=== PATIENT | male | born 1960 ===

== ENCOUNTER 2016-11-06 11:32 | Inpatient (IN) | payer OTHER ==
[2016-11-06 11:32] VITALS: BMI 23.6
[2016-11-06] MEDS ORDERED: Sodium Chloride 0.9% 1,000 ML IV ONE (12:34)
--- NOTE | 2016-11-06 12:41 | C.PDOC ---
History Of Present Illness 56 yr old male presents to the ER sent by Dr. Tierney for evaluation of Lyme Disease. Patient denies fever, chills, chest pain, SOB, nausea, vomiting, abdominal pain, diarrhea, weakness or numbness. Time Seen by Provider: 11/06/16 12:06 Chief Complaint (Nursing): Medical Clearance History Per: Patient History/Exam Limitations: no limitations Onset/Duration Of Symptoms: Unknown Past Medical History Reviewed: Historical Data, Nursing Documentation, Vital Signs Vital Signs: Last Vital Signs Temp 97.3 F L 11/06/16 11:40 Pulse 74 11/06/16 11:40 Resp 18 11/06/16 11:40 BP 120/77 11/06/16 11:40 Pulse Ox 99 11/06/16 13:36 - Medical History PMH: Anxiety, Benign Prostatic Hyperplasia, HTN, Seizures (11/[address]GO [address]UE [address] CONTRAST ALLERGY) Surgical History: Endoscopy - [facility] Procedures CLOSED ENDOSCOPIC BIOPSY OF LARGE INTESTINE (08/05/13) DX ULTRASOUND NEC (08/03/13) ESOPHAGOGASTRODUODENOSCOPY [EGD] W/CLOSED BIOPSY (11/17/14) TETANUS TOXOID ADMINIST (04/11/14) Family History: States: No Known Family Hx - Social History Hx Tobacco Use: No Hx Alcohol Use: No Hx Substance Use: No - Immunization History Hx Tetanus Toxoid Vaccination: No Hx Influenza Vaccination: No Hx Pneumococcal Vaccination: No Review Of Systems Except As Marked, All Systems Reviewed And Found Negative. Constitutional: Negative for: Fever, Chills Cardiovascular: Negative for: Chest Pain Respiratory: Negative for: Shortness of Breath Gastrointestinal: Negative for: Nausea, Vomiting, Abdominal Pain, Diarrhea Neurological: Negative for: Weakness, Numbness Physical Exam - Physical Exam Appears: Well, Non-toxic, No Acute Distress, Other (Bilateral cheeks redness) Skin: Warm, Dry, No Rash Head: Atraumatic, Normacephalic Oral Mucosa: Moist Throat: Normal, No Erythema, No Exudate, No Drooling Chest: Symmetrical, No Tenderness Cardiovascular: Rhythm Regular, No Murmur Respiratory: Normal Breath Sounds, No Rales, No Rhonchi, No Wheezing Gastrointestinal/Abdominal: Normal Exam, Soft, No Tenderness, No Guarding, No Rebound Extremity: Normal ROM, No Swelling Neurological/Psych: Oriented x3, Normal Speech ED Course And Treatment - Laboratory Results Result Diagrams: 11/06/16 13:24 11/06/16 13:24 Lab Interpretation: Abnormal ECG: Interpreted By Me ECG Rhythm: Sinus Bradycardia ECG Interpretation: Normal Rate From EC O2 Sat by Pulse Oximetry: 99 Pulse Ox Interpretation: Normal - Other Rad CXR X-Ray: Viewed By Me, Read By Radiologist Interpretation: HISTORY: SOB. COMPARISON: 11/07/2014. TECHNIQUE: Chest PA and lateral. FINDINGS: LUNGS: No active pulmonary disease. PLEURA: No significant pleural effusion identified. No pneumothorax apparent. CARDIOVASCULAR: Normal. OSSEOUS STRUCTURES: No significant abnormalities. VISUALIZED UPPER ABDOMEN: Normal. OTHER FINDINGS: None. IMPRESSION: No active disease. Progress Note: Case discussed with Dr tierney and request admission Reassessment Condition: Unchanged - Physician Consult Information Physician Contacted: Kimberly Tierney Outcome Of Conversation: admit Medical Decision Making Medical Decision Making: PLAN: * CXR * EKG * CBC * Lyme IGG, IGM * Urinalysis * Sodium Chloride IV Disposition Discussed With Dr.: Kimberly Tierney Doctor Will See Patient In The: Hospital - Disposition Disposition: HOSPITALIZED Disposition Time: 13:40 Condition: STABLE - POA Present On Arrival: None - Clinical Impression Clinical Impression: Lyme disease - PA / SENIOR MANAGER QUALITY ASSURANCE / Resident Statement MD/DO has reviewed & agrees with the documentation as recorded. - Scribe Statement The provider has reviewed the documentation as recorded by the Scribe Usha Knox All medical record entries made by the Scribe were at my direction and personally dictated by me. I have reviewed the chart and agree that the record accurately reflects my personal performance of the history, physical exam, medical decision making, and the department course for this patient. I have also personally directed, reviewed, and agree with the discharge instructions and disposition. Decision To Admit - Pt Status Changed To: Hospital Disposition Of: Inpatient - Admit Certification Admit to Inpatient:: After my assessment, the patient will require hospitalization for at least two midnights. This is because of the severity of symptoms shown, intensity of services needed, and/or the medical risk in this patient being treated as an outpatient. - InPatient: Physician Admission Certification: I certify that this patient requires 2 or more midnights of care for the following reason:: Lyme disease - . Bed Request Type: Regular Admitting Physician: Kimberly Tierney Patient Diagnosis: Lyme disease
--- NOTE | 2016-11-06 12:48 | RAD ---
HISTORY: SOB COMPARISON: 11/07/2014 TECHNIQUE: Chest PA and lateral FINDINGS: LUNGS: No active pulmonary disease. PLEURA: No significant pleural effusion identified. No pneumothorax apparent. CARDIOVASCULAR: Normal. OSSEOUS STRUCTURES: No significant abnormalities. VISUALIZED UPPER ABDOMEN: Normal. OTHER FINDINGS: None. IMPRESSION: No active disease.
[2016-11-06 13:36] LABS: RBC URINE < 1 /hpf (0-3); URINE BILIRUBIN NEGATIVE (NEGATIVE); URINE BLOOD NEGATIVE (NEGATIVE); URINE COLOR Straw (YELLOW); URINE GLUCOSE (UA) NORMAL (Normal); URINE KETONE NEGATIVE (NEGATIVE); URINE LEUKOCYTE ESTERASE NEG Leu/uL (Negative); URINE PROTEIN NEGATIVE (NEGATIVE); URINE UROBILINOGEN NORMAL mg/dL (0.2-1.0); WBC URINE < 1 /hpf (0-5)
[2016-11-06] MEDS ORDERED: Sodium Chloride 0.9% 1,000 ML ONE (13:36)
[2016-11-06 13:45] LABS: CHLORIDE 104 mmol/L (98-107); POTASSIUM 3.8 mmol/L (3.6-5.2); SODIUM 141 mmol/L (132-148)
[2016-11-06 13:47] LABS: AST/SGOT 35 U/L (17-59); BASO % 0.8 % (0.0-2.0); BILIRUBIN,TOTAL 0.2 mg/dL (0.2-1.3); CARBON DIOXIDE 24 mmol/L (22-30); EOS % 1.1 % (0.0-4.0); GFR AFRICAN-AMERICAN > 60; HEMATOCRIT 40.6 % (35.0-51.0); LYMPH # 0.8 K/uL (1.0-4.3); LYMPH % 41.1 % (20.0-40.0); MEAN CELL VOLUME 93.5 fL (80.0-94.0); MEAN CORPUSCULAR HEMOGLOBIN 30.7 pg (27.0-31.0); MEAN CORPUSCULAR HGB CONC 32.8 g/dL (33.0-37.0); MEAN PLATELET VOLUME 9.9 fL (7.2-11.7); MONO # 0.3 K/uL (0.0-0.8); MONO % 14.6 % (0.0-10.0); RED CELL DISTRIBUTION WIDTH 12.8 % (11.5-14.5)
[2016-11-06 13:48] LABS: ALB/GLOB RATIO 1.5 (1.0-2.1); ALKALINE PHOSPHATASE 54 U/L (38-126); ALT/SGPT 35 U/L (21-72); BLOOD UREA NITROGEN 17 mg/dL (9-20); CALCIUM 8.8 mg/dl (8.6-10.4); GLUCOSE,RANDOM 97 mg/dL (75-110); TOTAL PROTEIN 6.4 g/dL (6.3-8.3)
--- NOTE | 2016-11-06 14:17 | CP.PCM.HP ---
History of Present Illness - History of Present Illness History of Present Illness: COMPREHENSIVE HISTORY & PHYSICAL EXAM HPI PT. 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 FOR SOMETIME HAS BEEN CMPLAIG OF MEMOMARY LOSS AND NO FOCAL WAEKNESS . NEUROLOGY W/U SHOWED 4-5 BAND POSITIVE FOR LYME DISEASE . MRI BRAIN SHOWED WHITE MATTER CHANGES PROBABLY SEC TO LYME . PT ALSO C/O HEADACHE PAST HIST. HTN/CH. SINUSITIS PERSONAL HIST: Smoking. N Alcohol. 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 FAMILY HIST : ROS : Constitutional: Negative for weight change, chills, night sweats, fatigue and usage of assist device. Eyes: Negative for redness, swelling, itching, discharge, vision changes, blurry vision, double vision, glaucoma, cataracts, Ears: Negative for hearing loss, ringing, , tinnitus, vertigo Nose: Negative for rhinorrhea, stuffiness, sniffing, itching, postnasal drip, discoloration, nasal congestion and epistaxis. Throat: Negative for throat clearing, sore throat, hoarseness, difficulty swallowing and difficulty speaking. Respiratory: Negative for cough, chest tightness, sputum or phlegm, chronic cough, hemoptysis, wheezing, snoring at night, pleuritic chest pain and daytime somnolence. Cardiovascular: Negative for chest pain, palpitations, orthopnea, PND, Edema of legs, leg cramps, angina, claudication, , irregular heartbeat, Neurology: Negative for irritability, muscle weakness, numbness and tingling, seizures, tremors, slurred speech, syncope, POS FOR mood changes, recurrent headaches MEMORYLOSS Gastrointestinal: Negative for difficulty swallowing, diarrhea, constipation, black stools, rectal bleeding, nausea, flatulence, reflux, poor appetite, changes in bowel habits, abdominal pain Genitourinary: Negative for frequent urination, hematuria, discharge, incontinence, urinary retention, frequent UTI, Psychiatric: Negative for depression, anxiety/panic, suicidal tendencies, Musculoskeletal: Negative for swollen joints, back pain, , neck pain, morning stiffness of joints, . Skin: Negative for rash, ulcers, itching, dry skin and pigmented lesions. P/E: Constitutional: Appears stated age and in no apparent distress. Head: Normocephalic. Ears: External ear canals patent without inflammation. Tympanic membranes intact with normal light reflex and landmark. Eyes: Pupils are central, bilaterally equal, symmetrical and reacts to light with normal movements and no icterus or pallor. Nose: External nares are patent. Mucosa is pink Mouth-Throat: Good general appearance and condition. No post-pharyngeal/oropharyngeal erythema and tonsillar hypertrophy. Good dental hygiene. Neck-Lymphatic: Neck is supple with normal ROM, no thyromegaly, lymph nodes or masses. JVD is normal with no carotid bruit. Lungs: Clear to percussion and auscultation with bilateral normal air entry. Cardiovascular: S1 and S2 are normal with no murmurs, gallops and rub. GI Exam: No hepatomegaly. Abdomen is soft and non-tender. No Organomegaly , masses or hernias are evident and bowel sounds are normal and active. Neurology: Higher function and all cranial nerves intact, with no gross motor or sensory deficit. Superficial and deep reflexes are normal with downwards planters. No cerebellar deficit with normal gait. Musculoskeletal: No tender spots with normal curvature of the spine with no swelling or restricted ROM of the small and large joints. Extremities: Homans sign absent. Intact pulses with no pitting edema, calf tenderness or skin color changes. 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 SINUSITIS PLAN: IV AB PER ID LP Present on Admission - Present on Admission Any Indicators Present on Admission: No Past Patient History - Past Medical History & Family History Past Medical History?: Yes - Past Social History Smoking Status: Never Smoked - CARDIAC Hx Hypertension: Yes - PULMONARY Hx Respiratory Disorders: Yes (SEASONAL ALLERGIES) - NEUROLOGICAL Hx Seizures: Yes (11/[address] CONTRAST ALLERGY) - HEENT Hx HEENT Problems: No - ENDOCRINE/METABOLIC Hx Endocrine Disorders: No - HEMATOLOGICAL/ONCOLOGICAL Hx Blood Disorders: No - INTEGUMENTARY Hx Dermatological Problems: Yes Other/Comment: H/O SKIN CANCER - MUSCULOSKELETAL/RHEUMATOLOGICAL Hx Musculoskeletal Disorders: No - GASTROINTESTINAL Hx Gastrointestinal Disorders: No - GENITOURINARY/GYNECOLOGICAL Hx Genitourinary Disorders: No - PSYCHIATRIC Hx Anxiety: Yes Hx Substance Use: No - SURGICAL HISTORY Hx Surgeries: Yes Hx Arthroscopy: Yes (LEFT KNEE MENISCUS REPAIR) Other/Comment: SKIN CANCER REMOVED FROM LEFT CHEEK - ANESTHESIA Hx Anesthesia: Yes Hx Anesthesia Reactions: No Hx Malignant Hyperthermia: No Meds Home Medications: Home Medication List Medication Instructions Recorded Confirmed Type cefTRIAXone [Rocephin] 2 gm IV DAILY #20 vial 11/13/16 Rx cefTRIAXone [Rocephin] 2 gm IVPB Q24H vial 11/13/16 Rx Allergies/Adverse Reactions: Allergies Allergy/AdvReac Type Severity Reaction Status Date / Time FISH Allergy Severe SHORTNESS Verified 05/25/15 08:24 OF BREATH Fish Containing Products Allergy Verified 11/06/16 11:38 iodine Allergy Verified 11/06/16 11:38 shellfish derived Allergy Verified 11/06/16 11:38 Results - Vital Signs Recent Vital Signs: Last Vital Signs Temp 97.3 F L 11/06/16 11:40 Pulse 74 11/06/16 11:40 Resp 18 11/06/16 11:40 BP 120/77 11/06/16 11:40 Pulse Ox 99 11/06/16 13:36 - Labs Result Diagrams: 11/13/16 07:19 11/11/16 07:08
--- NOTE | 2016-11-06 14:35 | CARD ---
APPROVED REPORT EKG Measurement Heart [id number] <Conclusion> Sinus bradycardia Otherwise normal ECG
[2016-11-06] MEDS: Metoprolol Succinate 50 mg XL Tab PO SCH (15:44)
--- NOTE | 2016-11-06 18:07 | CP.PCM.CON ---
History of Present Illness - History of Present Illness History of Present Illness: INFECTIOUS DISEASE CONSULT; PATIENT SEEN. CHART REVIEWED. HISTORY OBTAINED FROM AT BEDSIDE. CONSULT DICTATED; DICTATION NUMBER; # [id number]. SEE REPORTS. Past Patient History - Past Medical History & Family History Past Medical History?: Yes - Past Social History Smoking Status: Never Smoked - CARDIAC Hx Hypertension: Yes - PULMONARY Hx Respiratory Disorders: Yes (SEASONAL ALLERGIES) - NEUROLOGICAL Hx Seizures: Yes (11/[address] CONTRAST ALLERGY) - HEENT Hx HEENT Problems: No - ENDOCRINE/METABOLIC Hx Endocrine Disorders: No - HEMATOLOGICAL/ONCOLOGICAL Hx Blood Disorders: No - INTEGUMENTARY Hx Dermatological Problems: Yes Other/Comment: H/O SKIN CANCER - MUSCULOSKELETAL/RHEUMATOLOGICAL Hx Musculoskeletal Disorders: No - GASTROINTESTINAL Hx Gastrointestinal Disorders: No - GENITOURINARY/GYNECOLOGICAL Hx Genitourinary Disorders: No - PSYCHIATRIC Hx Anxiety: Yes Hx Substance Use: No - SURGICAL HISTORY Hx Surgeries: Yes Hx Arthroscopy: Yes (LEFT KNEE MENISCUS REPAIR) Other/Comment: SKIN CANCER REMOVED FROM LEFT CHEEK - ANESTHESIA Hx Anesthesia: Yes Hx Anesthesia Reactions: No Hx Malignant Hyperthermia: No Meds Allergies/Adverse Reactions: Allergies Allergy/AdvReac Type Severity Reaction Status Date / Time FISH Allergy Severe SHORTNESS Verified 05/25/15 08:24 OF BREATH Fish Containing Products Allergy Verified 11/06/16 11:38 iodine Allergy Verified 11/06/16 11:38 shellfish derived Allergy Verified 11/06/16 11:38 - Medications Medications: Current Medications Alprazolam (Xanax) 0.5 mg PO HS PRN PRN Reason: Anxiety Amlodipine Besylate (Norvasc) 10 mg PO DAILY [facility] Losartan Potassium (Cozaar) 100 mg PO DAILY [facility] Last Admin: 11/06/16 15:43 Dose: Not Given Metoprolol Succinate (Toprol Xl) 50 mg PO DAILY [facility] Last Admin: 11/06/16 15:44 Dose: Not Given Rosuvastatin Calcium (Crestor) 5 mg PO [facility] Results - Vital Signs Recent Vital Signs: Last Vital Signs Temp 97.8 F 11/06/16 17:00 Pulse 68 11/06/16 17:00 Resp 17 11/06/16 17:00 BP 121/80 11/06/16 17:00 Pulse Ox 100 11/06/16 17:00 - Labs Result Diagrams: 11/06/16 13:24 11/06/16 13:24
[2016-11-06] MEDS: cefTRIAXone 2 GM in Sodium Chloride 0.9% 100 ML IVPB SCH (19:50)
[2016-11-07 01:26] VITALS: RESP 20
--- NOTE | 2016-11-07 08:41 | CON ---
DATE: 11/06/2016 REQUESTING PHYSICIAN: Dr. Snider. REASON FOR CONSULTATION: Headaches with memory loss and positive Lyme titers and serology. HISTORY OF PRESENT ILLNESS: The patient is a 56-year-old male, who is admitted via the Emergency [facility] m because of chronic headaches and also complaining of recent memory loss with no focal weakness at p resent. The patient had extensive workup done as outpatient by neurologist, and workup showed more t rodgers 5-band positive for Lyme disease including both IgM and IgG serology. The patient had an MRI of the brain as an outpatient, the results of which are not in the chart, but as reported, had some whit e matter changes, questionable cerebritis and increased uptake small vessel disease, as patient has history of treatment with radiation and surgery. Infectious disease consultation therefore requ ested for possible evaluation of questionable central disease. History obtained mainly from hi s who was at the bedside and speaks Chadian. 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 The patient also compl ains of chronic, intermittent types of headache, mainly localized in the occipital, right side to the frontal area. The patient denies any blurred vision, dizziness, but does complain of memory i mpairment manifesting as disorientation with confusion which recovers by itself. The patient denies any aggravating factors. The patient does have history of high blood pressure and is presently takin g his pressure pills regularly. The patient states his gait is stable and there are no involuntary m ovements as . The patient also gives history of chronic pruritus and rash on the back of right shoulder blade, consistent with eczema. The patient does have history of melanoma of the skin, which he states was excised and did not recur. PAST MEDICAL HISTORY: As above. History of hypertension and chronic sinusitis, presently complains of whitish phlegm and congestion. FAMILY HISTORY: Unknown. SOCIAL HISTORY: Denies smoking or alcohol use. Denies history of any drug abuse. ALLERGIES: No known allergies except for FISH AND SHELLFISH. Denies allergies to penicillin. TRAVEL: No recent travel history or contact with any sick patients. PETS: Denies any pets at home. REVIEW OF SYSTEMS: CONSTITUTIONAL: Presently denies any loss of weight or gaining weight. Denies night sweats, fatigue . EYES: Denies any visual problems, any floaters. No history of glaucoma or cataracts. HEENT: As reported. Complains of some stuffiness and chronic sinusitis history. Denies any epistax is. LUNGS: Complains of whitish phlegm, chronic cough, but denies any history of hemoptysis. CARDIOVASCULAR: Denies any chest pains, dyspnea on exertion, paroxysmal nocturnal dyspnea. CENTRAL NERVOUS SYSTEM: As reported above. Complains of intermittent headaches and periods of confu bryce and memory loss. Denies any weakness or loss of function of any part. GASTROINTESTINAL: Unremarkable. No diarrhea. No obstipation. No loss of weight. The rest of the review of systems is unremarkable. PHYSICAL EXAMINATION: GENERAL: The patient is awake, alert, not in any acute distress, appears stated his age. HEENT: Pupils equal, reactive to light and accommodation. Extraocular movements full. Fundus negat golden. Sclerae nonicteric. Conjunctivae normal. JVP not elevated. NECK: Supple. No lymphadenitis noted. No thyromegaly. JVP normal. No carotid bruit. LUNGS: Fair to auscultation. Fair bilateral air entry. CARDIOVASCULAR SYSTEM: S1, S2 regular. No murmur or gallops. ABDOMEN: Soft, nontender. No organomegaly. No masses. Bowel sounds are present. EXTREMITIES: No cyanosis, clubbing, or edema. CENTRAL NERVOUS SYSTEM: Moves all extremities. Reflexes are equal and symmetrical bilateral. Crani al nerves II-XII seem to be intact. No gross motor or sensory deficits noted. Normal gait, as per w lexis. SKIN: The patient has some facial erythema and seborrheic dermatitis noted on the cheeks. There is some irritable skin eczema posteriorly on the right shoulder blade secondary to chronic irritation. LABORATORY DATA: As noted. WBC of 2.0, H and H of , platelets 161, 42% lymphs, 42% neutrophils . Creatinine 0.9, BUN of 17. Liver function tests normal. Blood sugar is 97. MRI of the head done as an outpatient, report pending. We will get report from the neurologist. IMPRESSION: 1. Headaches with positive Lyme serology and positive 5 bands for Lyme disease, rule out neuroborrel iosis. 2. Memory loss, questionable early dementia, rule out multiple sclerosis versus Michael Anthony viru s. 3. Leukopenia, rule out myelodysplastic syndrome. Rule out any immunodeficiency syndromes. 4. History of hypertension. 5. Chronic sinusitis. 6. Pruritus and eczema. PLAN: Perkins cultures. We will get sed rate, C-reactive proteins, rheumatoid factor, LOREN. We will rep eat Lyme IgM and IgG by Stephanie and Western blot serology. Lyme serology by PCR. We will also get HIV 1 and 2 antibody and HIV-1 RNA quantitative levels and fourth generation HIV test. The patient will need an LP to rule out neuroborreliosis or central . We will discuss with neurology to arrange for LP appropriate studies. Presently, we will initiate Rocephin 2 grams IV piggyback q. 24 h ourly. Case discussed with primary care, Dr. Snider. We will follow along with you and make recommendations as needed. Obtain old test results, especially MRI results. Thank you very much for allowing me to participate in the care of your patient. We will follow along with you. Valdo Pineda MD cc: [id number] TT: 11/07/2016 01:43:45 Confirmation # [id number] Dictation # [id number] tn
[2016-11-07] MEDS: Metoprolol Succinate 50 mg XL Tab PO SCH (09:28)
--- NOTE | 2016-11-07 09:38 | CON ---
DATE: 11/07/2016 TIME OF EVALUATION: 7:00 a.m. Neurological consultation for change in mental status. CHIEF COMPLAINT: The patient was brought into [facility] (Former[facility]) as per the advice from me, as well as the primary care physician, for the workup for his change in mental status. 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 The workup, including for his infec tion and anti-inflammatory process. The workup consistent with Lyme disease; both IgM as well as IgG titers were positive. The rest of the workup was negative. The patient was scheduled to get a spin al tap procedures to rule out neuro Lyme disease. At present, he denies headache. No visual or bulbar dysfunction. He is ambulatory. No history of l oss of consciousness, no history of seizures. PAST MEDICAL HISTORY: Unremarkable. PERSONAL HISTORY: Denies smoking or alcohol use. ALLERGIC TO FISH AND IODINE. MEDICATIONS: Ceftriaxone been already started. The patient also taking medication for his blood pre ssure, losartan, rosuvastatin, metoprolol, and Xanax. VITAL SIGNS: Blood pressure 118/73, mean arterial pressure of 88, respiratory rate 16, temperature a febrile. NECK: Supple. No carotid bruit. HEART SOUNDS: Regular. CHEST: Fair air entry. EXTREMITIES: No edema in legs. NEUROLOGIC EXAMINATION: MENTAL STATUS EXAMINATION: He is awake, alert, oriented to person, place, and time. He is communica ble only in Slovak. Speech is fluent in Slovak. He follows 2-3 step complex commands. CRANIAL NERVE EXAMINATION: Visual field intact. Pupil reactive to light, extraocular movements norm al. No nystagmus. No facial sensory deficit, no facial asymmetry. Hearing is normal. Tongue is mi dline. Good gag. MOTOR EXAMINATION: Outstretched hands with eyes closed, no drift noted. Power is symmetric on eithe r side. DEEP TENDON REFLEXES: Biceps, brachioradialis, triceps 1+. Both knees are 1+. Both ankles are abse nt. Plantars are downgoing. SENSORY EXAMINATION: Grossly intact. Mild sensorimotor distal neuropathy. GAIT: Normal. Rhomberg sign negative. CONCLUSION: Upon reviewing his history and neurological examination, the patient presenting with munir nge in mental status, particularly affecting the short term memory, which has been a subacute process ; the workup consistent with possible Lyme disease. The current examination does not show any long t ract signs except a change in his mental dysfunction. BLOOD WORKUP: WBC is 2.0, hemoglobin 13.3, hematocrit 40.6, platelets 161. Sodium 141, potassium 3. 8, chloride 104, bicarbonate 24, BUN 17, creatinine 0.9. GFR more than 60. Urine analysis is negat golden. The patient is scheduled to have a spinal tap this afternoon. The patient also scheduled to have lavern e workup to rule out paraneoplastic syndrome and other infectious process, as per infectious disease recommendation. The patient's condition also discussed with his this morning. She also agreed with my plan of m anagement. Ravinder Moore MD cc: [id number] TT: 11/07/2016 09:37:30 Confirmation # [id number] Dictation # [id number] jn
--- NOTE | 2016-11-07 13:38 | CP.PCM.PN ---
Subjective - Date & Time of Evaluation Date of Evaluation: 11/07/16 Time of Evaluation: 13:37 - Subjective Subjective: CHIEF COMPLAINTS TODAY : HEADACHE ROS. HEENT : N. Resp : No cough, wheezing ,pleuritic CP ,or hemoptysis Cardio : No anginal CP, PND, orthopnea, palpitation GI : No abd.pain, n/v ,diarrhea or GI bleeding . 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 Musculoskel : No joint swelling , Derm : No rash Psych : Normal affect. Ext : No swelling ,calf pain PE. Pt. is alert awake in no distress. V.S As noted in the chart Head ,ear nose,throat and eyes : Normal. Neck : Supple with normal carotids. Lungs: Clear air entry. Heart : S1 & S2 normal with S4. No murmur. Abd : Soft non tender with normal bowel sounds. Neuro : Moves all ext. with no localized deficit. Ext : No edema with intact pulses.Non tender calves Derm : No rashes or decubitus ulcer. LABS/RADIOLOGY: ASSESSMENT/PLAN : ON IV AB AWAITING LP Objective - Vital Signs/Intake and Output Vital Signs (last 24 hours): Temp Pulse Resp BP Pulse Ox 97.5 F L 86 20 113/73 99 11/07/16 07:54 11/07/16 07:55 11/07/16 07:54 11/07/16 07:54 11/07/16 07:54 Intake and Output: 11/07/16 11/07/16 11:59 23:59 Intake Total 200 Balance 200 - Medications Medications: Current Medications Alprazolam (Xanax) 0.5 mg PO HS PRN PRN Reason: Anxiety Last Admin: 11/06/16 21:40 Dose: 0.5 mg Amlodipine Besylate (Norvasc) 10 mg PO DAILY [facility] Last Admin: 11/07/16 09:28 Dose: 10 mg Ceftriaxone Sodium 2 gm/ (Sodium Chloride) 100 mls @ 100 mls/hr IVPB Q24H [facility] Last Admin: 11/06/16 19:50 Dose: 100 mls/hr Losartan Potassium (Cozaar) 100 mg PO DAILY [facility] Last Admin: 11/07/16 09:27 Dose: 100 mg Metoprolol Succinate (Toprol Xl) 50 mg PO DAILY [facility] Last Admin: 11/07/16 09:28 Dose: 50 mg Rosuvastatin Calcium (Crestor) 5 mg PO HS [facility]
--- NOTE | 2016-11-07 16:15 | CP.PCM.PN ---
Subjective - Date & Time of Evaluation Date of Evaluation: 11/07/16 Time of Evaluation: 16:14 Objective - Vital Signs/Intake and Output Vital Signs (last 24 hours): Temp Pulse Resp BP Pulse Ox 97.5 F L 86 20 113/73 99 11/07/16 07:54 11/07/16 07:55 11/07/16 07:54 11/07/16 07:54 11/07/16 07:54 Intake and Output: 11/07/16 11/07/16 06:59 18:59 Intake Total 500 Balance 500 - Medications Medications: Current Medications Alprazolam (Xanax) 0.5 mg PO HS PRN PRN Reason: Anxiety Last Admin: 11/06/16 21:40 Dose: 0.5 mg Amlodipine Besylate (Norvasc) 10 mg PO DAILY [facility] Last Admin: 11/07/16 09:28 Dose: 10 mg Ceftriaxone Sodium 2 gm/ (Sodium Chloride) 100 mls @ 100 mls/hr IVPB Q24H [facility] Last Admin: 11/06/16 19:50 Dose: 100 mls/hr Losartan Potassium (Cozaar) 100 mg PO DAILY [facility] Last Admin: 11/07/16 09:27 Dose: 100 mg Metoprolol Succinate (Toprol Xl) 50 mg PO DAILY [facility] Last Admin: 11/07/16 09:28 Dose: 50 mg Rosuvastatin Calcium (Crestor) 5 mg PO HS [facility]
--- NOTE | 2016-11-07 16:17 | CP.PCM.PN ---
Subjective - Date & Time of Evaluation Date of Evaluation: 11/07/16 Time of Evaluation: 16:17 - Subjective Subjective: afebrile Clinically same. SEEN BY NEUROLOGIST. AT BEDSIDE AWAITING SPINAL TAP IN AFTERNOON PER NEUROLOGIST Objective - Vital Signs/Intake and Output Vital Signs (last 24 hours): Temp Pulse Resp BP Pulse Ox 97.5 F L 86 20 113/73 99 11/07/16 07:54 11/07/16 07:55 11/07/16 07:54 11/07/16 07:54 11/07/16 07:54 Intake and Output: 11/07/16 11/07/16 06:59 18:59 Intake Total 500 Balance 500 - Medications Medications: Current Medications Alprazolam (Xanax) 0.5 mg PO HS PRN PRN Reason: Anxiety Last Admin: 11/06/16 21:40 Dose: 0.5 mg Amlodipine Besylate (Norvasc) 10 mg PO DAILY [facility] Last Admin: 11/07/16 09:28 Dose: 10 mg Ceftriaxone Sodium 2 gm/ (Sodium Chloride) 100 mls @ 100 mls/hr IVPB Q24H [facility] Last Admin: 11/06/16 19:50 Dose: 100 mls/hr Losartan Potassium (Cozaar) 100 mg PO DAILY [facility] Last Admin: 11/07/16 09:27 Dose: 100 mg Metoprolol Succinate (Toprol Xl) 50 mg PO DAILY [facility] Last Admin: 11/07/16 09:28 Dose: 50 mg Rosuvastatin Calcium (Crestor) 5 mg PO HS [facility] - Constitutional Appears: No Acute Distress - Eye Exam Eye Exam: EOMI, PERRL - ENT Exam ENT Exam: Mucous Membranes Moist - Neck Exam Neck Exam: Normal Inspection - Respiratory Exam Respiratory Exam: Clear to Ausculation Bilateral - GI/Abdominal Exam GI & Abdominal Exam: Soft, Normal Bowel Sounds - Extremities Exam Extremities Exam: absent: Calf Tenderness, Pedal Edema - Neurological Exam Neurological Exam: Alert, Awake, CN II-XII Intact, Normal Gait, Oriented x3 - Psychiatric Exam Psychiatric exam: Normal Mood - Skin Skin Exam: Normal Color, Warm Assessment and Plan - Assessment and Plan (Free Text) Assessment: IMPRESSION; -HEADACHE WITH POSITIVE lYME SEROLOGY >5BANDS R/O NEUROBERRELIOSIS -MEMORY LOSS ? EARLY DEMENTIA R/O MULTIPLE SCLEROSIS R/O PROGRESSIVE MULTIFOCAL LEUKOENCEPHALOPATHY SEC. POLYOMAVIRUS (YEN-VIRUS ) -LEUKOPENIA R/O MYELODYSPLASTIC SYNDROME WITH R/O IMMUNE DEFICIENCY SYNDROME. -HYPERTENSION. - CHRONIC SINUSITIS. - CH. PRURITUS/ECZEMA RIGHT SHOULDER BLADE. PLAN . PATIENT AWAITING SPINAL TAP WITH APPROPRIATE CULTURES/AND PCR. AWAITING REPEAT lYME SEROLOGY BY ABBE AND wESTERN BLOT. CONTINUE iv ROCEPHIN 2 G iv PIGGYBACK ONCE A DAY DAILY.11/06/16. FOLLOW-UP CULTURES AND APPROPRIATE STUDIES IN PROGRESS. CLOBETASOL OINTMENT LOCALLY 0.5% TWICE A DAY TO SHOULDER BLADE. PER NEUROLOGY, AWAITING OLD MRI REPORT . WE'LL FOLLOW ALONG WITH YOU AND MAKE RECOMMENDATIONS NEEDED.
[2016-11-07 16:21] LABS: INR 0.9
[2016-11-07] MEDS ORDERED: Potassium Ch 20mEq in D5-1/2NS 1,000 ML IV SCH (19:00)
[2016-11-07] MEDS: cefTRIAXone 2 GM in Sodium Chloride 0.9% 100 ML IVPB SCH (19:03)
--- NOTE | 2016-11-07 19:04 | PCM.PROC ---
Procedures Attestation:: I certify that I have explained the specified Operation(s) or Procedure(s), risks, benefits and reasonable alternatives to the Patient and/or other person responsible. The opportunity was given to ask questions and all questions answered - Lumbar Puncture Consent Obtained: Verbal Consent (Obtained by Dr. Moore) Time Out Performed: Yes Patient Position: Left Lateral Decubitius Skin Prep: Povidone-Iodine 1% Local Anesthetic Used: Lidocaine 1% Amount of Anesthesia Used (mls): 3 (skin wheal at L4/5) Spinal Needle Gauge: 22G Interspace Used: L4-L5 Fluid Initially Obtained: Clear Complications: None Additional comments: Anesthesia called by Dr. Moore for assistance in lumbar puncture. Attempts made however unsuccessful. Consent was previously obtain by Neurologist. Patient placed on left lateral decubitus position. Back sterilely cleaned with betadine x3 and draped. 3mL of 1%Lidocaine with skin wheal at L4/5 interspace. 22G quinkie needle advanced paramedian approach, +CSF, no heme, no paresthesia. CSF collected by Dr. Moore and needle removed intact. Dressing applied. Patient tolerated procedure well.
[2016-11-07] MEDS: Dextrose 5%/0.45% NS 1,000 ML IV SCH (19:18)
[2016-11-07 19:55] LABS: FLUID TYPE SPINAL FLUID
[2016-11-07 23:15] LABS: CSF LYMPHOCYTE < 10.0 % (0-0); CSF NEUTROPHIL < 5 % (0-0)
[2016-11-08] MEDS: Dextrose 5%/0.45% NS 1,000 ML IV SCH (05:59)
[2016-11-08 07:04] LABS: BASO % 0.8 % (0.0-2.0); EOS % 1.1 % (0.0-4.0); HEMATOCRIT 43.3 % (35.0-51.0); LYMPH # 0.8 K/uL (1.0-4.3); LYMPH % 23.4 % (20.0-40.0); MEAN CELL VOLUME 94.7 fL (80.0-94.0); MEAN CORPUSCULAR HEMOGLOBIN 31.3 pg (27.0-31.0); MEAN CORPUSCULAR HGB CONC 33.1 g/dL (33.0-37.0); MEAN PLATELET VOLUME 10.1 fL (7.2-11.7); MONO # 0.4 K/uL (0.0-0.8); MONO % 10.3 % (0.0-10.0); RED CELL DISTRIBUTION WIDTH 12.9 % (11.5-14.5); WHITE BLOOD COUNT 3.5 K/uL (4.8-10.8)
[2016-11-08 07:36] LABS: CHLORIDE 104 mmol/L (98-107); POTASSIUM 3.9 mmol/L (3.6-5.2); SODIUM 141 mmol/L (132-148)
[2016-11-08 07:39] LABS: BLOOD UREA NITROGEN 15 mg/dL (9-20); CARBON DIOXIDE 27 mmol/L (22-30); GFR AFRICAN-AMERICAN > 60
[2016-11-08 07:40] LABS: CALCIUM 8.6 mg/dl (8.6-10.4); GLUCOSE,RANDOM 107 mg/dL (75-110)
[2016-11-08 08:13] LABS: LYME DISEASE SCREEN <0.90 index (())
[2016-11-08] MEDS: Metoprolol Succinate 50 mg XL Tab PO SCH (09:05)
--- NOTE | 2016-11-08 12:33 | CP.PCM.PN ---
Subjective - Date & Time of Evaluation Date of Evaluation: 11/08/16 Time of Evaluation: 12:32 - Subjective Subjective: LP DONE , FLUID NORMAL ON IV AB WBC UP 3.5 APPRECIATE NEURO/ID HELP Objective - Vital Signs/Intake and Output Vital Signs (last 24 hours): Temp Pulse Resp BP Pulse Ox 97.9 F 68 20 136/80 99 11/08/16 07:49 11/08/16 07:49 11/08/16 07:49 11/08/16 07:49 11/08/16 07:49 Intake and Output: 11/08/16 11/08/16 11:59 23:59 Intake Total 1040 Output Total 700 Balance 340 - Medications Medications: Current Medications Alprazolam (Xanax) 0.5 mg PO HS PRN PRN Reason: Anxiety Last Admin: 11/07/16 21:04 Dose: 0.5 mg Amlodipine Besylate (Norvasc) 10 mg PO DAILY [facility] Last Admin: 11/08/16 09:05 Dose: 10 mg Clobetasol Propionate (Temovate 0.05% Ointment) 1 applic TOP BID [facility] Last Admin: 11/08/16 11:15 Dose: 1 applic Ceftriaxone Sodium 2 gm/ (Sodium Chloride) 100 mls @ 100 mls/hr IVPB Q24H [facility] Last Admin: 11/07/16 19:03 Dose: 100 mls/hr Losartan Potassium (Cozaar) 100 mg PO DAILY [facility] Last Admin: 11/08/16 09:05 Dose: 100 mg Metoprolol Succinate (Toprol Xl) 50 mg PO DAILY [facility] Last Admin: 11/08/16 09:05 Dose: 50 mg Rosuvastatin Calcium (Crestor) 5 mg PO HS [facility] Last Admin: 11/07/16 21:04 Dose: 5 mg - Labs Labs: 11/08/16 06:52 11/08/16 06:52 PT 10.5 SECONDS (9.7-12.2) 11/07/16 16:01 INR 0.9 11/07/16 16:01 APTT 33 SECONDS (21-34) 11/07/16 16:01
--- NOTE | 2016-11-08 15:45 | CP.PCM.PN ---
Subjective - Date & Time of Evaluation Date of Evaluation: 11/08/16 Time of Evaluation: 15:45 - Subjective Subjective: AFEBRILE NO NEW COMPLAINTS WBC INCREASED TO 3.5. S/P LP CSF FINDINGS ? TRAUMATIC (CELL COUNT - WBC 39 ,NEUTROPHILS <5, L <10,RBC 558, N-SUGAR, N-PROTEINS ) ON ABX F/U LYME PCR /AND CULTURES Objective - Vital Signs/Intake and Output Vital Signs (last 24 hours): Temp Pulse Resp BP Pulse Ox 97.9 F 68 20 136/80 99 11/08/16 07:49 11/08/16 07:49 11/08/16 07:49 11/08/16 07:49 11/08/16 07:49 Intake and Output: 11/08/16 11/08/16 06:59 18:59 Intake Total 500 1540 Output Total 350 700 Balance 150 840 - Medications Medications: Current Medications Alprazolam (Xanax) 0.5 mg PO HS PRN PRN Reason: Anxiety Last Admin: 11/07/16 21:04 Dose: 0.5 mg Amlodipine Besylate (Norvasc) 10 mg PO DAILY [facility] Last Admin: 11/08/16 09:05 Dose: 10 mg Clobetasol Propionate (Temovate 0.05% Ointment) 1 applic TOP BID [facility] Last Admin: 11/08/16 11:15 Dose: 1 applic Ceftriaxone Sodium 2 gm/ (Sodium Chloride) 100 mls @ 100 mls/hr IVPB Q24H [facility] Last Admin: 11/07/16 19:03 Dose: 100 mls/hr Losartan Potassium (Cozaar) 100 mg PO DAILY [facility] Last Admin: 11/08/16 09:05 Dose: 100 mg Metoprolol Succinate (Toprol Xl) 50 mg PO DAILY [facility] Last Admin: 11/08/16 09:05 Dose: 50 mg Rosuvastatin Calcium (Crestor) 5 mg PO HS [facility] Last Admin: 11/07/16 21:04 Dose: 5 mg - Labs Labs: 11/08/16 06:52 11/08/16 06:52 PT 10.5 SECONDS (9.7-12.2) 11/07/16 16:01 INR 0.9 11/07/16 16:01 APTT 33 SECONDS (21-34) 11/07/16 16:01 - Constitutional Appears: No Acute Distress - Head Exam Head Exam: NORMAL INSPECTION - Eye Exam Eye Exam: EOMI, PERRL. absent: Scleral icterus - ENT Exam ENT Exam: Mucous Membranes Moist - Neck Exam Neck Exam: Normal Inspection. absent: Lymphadenopathy - Respiratory Exam Respiratory Exam: Clear to Ausculation Bilateral - Cardiovascular Exam Cardiovascular Exam: REGULAR RHYTHM, +S1, +S2 - GI/Abdominal Exam GI & Abdominal Exam: Soft, Normal Bowel Sounds. absent: Organomegaly - Extremities Exam Extremities Exam: absent: Calf Tenderness, Pedal Edema - Neurological Exam Neurological Exam: Awake, CN II-XII Intact, Normal Gait, Oriented x3, Reflexes Normal - Psychiatric Exam Psychiatric exam: Normal Mood - Skin Skin Exam: Normal Color, Warm Assessment and Plan - Assessment and Plan (Free Text) Assessment: IMPRESSION; -HEADACHE WITH POSITIVE lYME SEROLOGY >5BANDS R/O NEUROBERRELIOSIS -MEMORY LOSS ? EARLY DEMENTIA R/O MULTIPLE SCLEROSIS R/O PROGRESSIVE MULTIFOCAL LEUKOENCEPHALOPATHY SEC. POLYOMAVIRUS (YEN-VIRUS ) -LEUKOPENIA R/O MYELODYSPLASTIC SYNDROME WITH R/O IMMUNE DEFICIENCY SYNDROME. -HYPERTENSION. - CHRONIC SINUSITIS. - CH. PRURITUS/ECZEMA RIGHT SHOULDER BLADE. PLAN . PATIENT AWAITING SPINAL TAP WITH APPROPRIATE CULTURES/AND PCR. AWAITING REPEAT lYME SEROLOGY BY ABBE AND wESTERN BLOT. CONTINUE iv ROCEPHIN 2 G iv PIGGYBACK ONCE A DAY DAILY.11/06/16. FOLLOW-UP CULTURES AND APPROPRIATE STUDIES IN PROGRESS.
[2016-11-08 16:39] LABS: LYME IGG NEGATIVE (NEGATIVE)
[2016-11-08 16:41] LABS: LYME IGM NEGATIVE (NEGATIVE)
[2016-11-08] MEDS: cefTRIAXone 2 GM in Sodium Chloride 0.9% 100 ML IVPB SCH (18:32)
[2016-11-09] MEDS: Metoprolol Succinate 50 mg XL Tab PO SCH (09:53)
--- NOTE | 2016-11-09 13:03 | CP.PCM.PN ---
Subjective - Date & Time of Evaluation Date of Evaluation: 11/09/16 Time of Evaluation: 13:01 - Subjective Subjective: AFEBRILE LESS HEADACHE AWAITING LABS Objective - Vital Signs/Intake and Output Vital Signs (last 24 hours): Temp Pulse Resp BP Pulse Ox 97.7 F 77 20 138/83 100 11/09/16 09:09 11/09/16 09:09 11/09/16 09:09 11/09/16 09:09 11/09/16 09:09 Intake and Output: 11/09/16 11/09/16 11:59 23:59 Intake Total 150 Balance 150 - Medications Medications: Current Medications Alprazolam (Xanax) 0.5 mg PO HS PRN PRN Reason: Anxiety Last Admin: 11/08/16 22:05 Dose: 0.5 mg Amlodipine Besylate (Norvasc) 10 mg PO DAILY [facility] Last Admin: 11/09/16 09:53 Dose: 10 mg Clobetasol Propionate (Temovate 0.05% Ointment) 1 applic TOP BID [facility] Last Admin: 11/09/16 09:55 Dose: 1 applic Ceftriaxone Sodium 2 gm/ (Sodium Chloride) 100 mls @ 100 mls/hr IVPB Q24H [facility] Last Admin: 11/08/16 18:32 Dose: 100 mls/hr Losartan Potassium (Cozaar) 100 mg PO DAILY [facility] Last Admin: 11/09/16 09:53 Dose: 100 mg Metoprolol Succinate (Toprol Xl) 50 mg PO DAILY [facility] Last Admin: 11/09/16 09:53 Dose: 50 mg Rosuvastatin Calcium (Crestor) 5 mg PO HS [facility] Last Admin: 11/08/16 22:03 Dose: 5 mg - Labs Labs: 11/08/16 06:52 11/08/16 06:52 PT 10.5 SECONDS (9.7-12.2) 11/07/16 16:01 INR 0.9 11/07/16 16:01 APTT 33 SECONDS (21-34) 11/07/16 16:01
--- NOTE | 2016-11-09 13:51 | CP.PCM.PN ---
Subjective - Date & Time of Evaluation Date of Evaluation: 11/09/16 Time of Evaluation: 13:51 - Subjective Subjective: afebrile, Feeling better. States getting back his strength. Tolerating IV antibiotics. Labs reviewed. Awaiting awaiting Lyme serology by Deena and Western blot. Continue present management. Case discussed with present at the bedside. Objective - Vital Signs/Intake and Output Vital Signs (last 24 hours): Temp Pulse Resp BP Pulse Ox 97.7 F 77 20 138/83 100 11/09/16 09:09 11/09/16 09:09 11/09/16 09:09 11/09/16 09:09 11/09/16 09:09 Intake and Output: 11/09/16 11/09/16 06:59 18:59 Intake Total 400 150 Balance 400 150 - Medications Medications: Current Medications Alprazolam (Xanax) 0.5 mg PO HS PRN PRN Reason: Anxiety Last Admin: 11/08/16 22:05 Dose: 0.5 mg Amlodipine Besylate (Norvasc) 10 mg PO DAILY [facility] Last Admin: 11/09/16 09:53 Dose: 10 mg Clobetasol Propionate (Temovate 0.05% Ointment) 1 applic TOP BID [facility] Last Admin: 11/09/16 09:55 Dose: 1 applic Ceftriaxone Sodium 2 gm/ (Sodium Chloride) 100 mls @ 100 mls/hr IVPB Q24H [facility] Last Admin: 11/08/16 18:32 Dose: 100 mls/hr Losartan Potassium (Cozaar) 100 mg PO DAILY [facility] Last Admin: 11/09/16 09:53 Dose: 100 mg Metoprolol Succinate (Toprol Xl) 50 mg PO DAILY [facility] Last Admin: 11/09/16 09:53 Dose: 50 mg Rosuvastatin Calcium (Crestor) 5 mg PO HS [facility] Last Admin: 11/08/16 22:03 Dose: 5 mg - Labs Labs: 11/08/16 06:52 11/08/16 06:52 PT 10.5 SECONDS (9.7-12.2) 11/07/16 16:01 INR 0.9 11/07/16 16:01 APTT 33 SECONDS (21-34) 11/07/16 16:01 - Constitutional Appears: No Acute Distress - Head Exam Head Exam: NORMAL INSPECTION - Eye Exam Eye Exam: EOMI, PERRL - ENT Exam ENT Exam: Mucous Membranes Moist - Neck Exam Neck Exam: Normal Inspection - Respiratory Exam Respiratory Exam: Clear to Ausculation Bilateral - Cardiovascular Exam Cardiovascular Exam: REGULAR RHYTHM, +S1, +S2 - Extremities Exam Extremities Exam: Normal Capillary Refill. absent: Calf Tenderness, Pedal Edema - Neurological Exam Neurological Exam: Alert, Awake, CN II-XII Intact, Normal Gait, Oriented x3, Reflexes Normal - Psychiatric Exam Psychiatric exam: Normal Mood - Skin Skin Exam: Normal Color, Rash (posterior right shoulder blade.), Warm Assessment and Plan - Assessment and Plan (Free Text) Assessment: IMPRESSION; -HEADACHE WITH POSITIVE lYME SEROLOGY >5BANDS R/O NEUROBERRELIOSIS -MEMORY LOSS ? EARLY DEMENTIA R/O MULTIPLE SCLEROSIS R/O PROGRESSIVE MULTIFOCAL LEUKOENCEPHALOPATHY SEC. POLYOMAVIRUS (YEN-VIRUS ) -LEUKOPENIA R/O MYELODYSPLASTIC SYNDROME WITH R/O IMMUNE DEFICIENCY SYNDROME. -HYPERTENSION. - CHRONIC SINUSITIS. - CH. PRURITUS/ECZEMA RIGHT SHOULDER BLADE. PLAN . f/u SPINAL FLUID AND W/U AND APPROPRIATE CULTURES/AND PCR. AWAITING REPEAT lYME SEROLOGY BY DEENA AND wESTERN BLOT. CONTINUE iv ROCEPHIN 2 G iv PIGGYBACK ONCE A DAY DAILY.11/06/16. FOLLOW-UP CULTURES AND APPROPRIATE STUDIES IN PROGRESS. CASE DISCUSSED WITH AT LENGTH.
--- NOTE | 2016-11-09 15:16 | PN ---
DATE: 11/09/2016 TIME OF EVALUATION: 2:45 p.m. NEUROLOGICAL PROBLEM: Possible neuro Lyme disease. PHYSICAL EXAMINATION: VITAL SIGNS: Blood pressure 138/83, mean arterial pressure 101, respiratory rate 18, temperature 97. 7 with a pulse rate 77 and regular. NEUROLOGIC: The patient is examined in the presence of his family members. The patient is more acti ve, out of the bed, walking around with no complaints at present. Communicable only in Vietnamese. Rest of the examination is all unchanged to compare with the previous examination. LABORATORY DATA: Spinal fluid showed increased WBCs consistent with some infectious process. His CS F protein as well as glucose were normal. His Lyme PCR and West Nile virus are still pending. RECOMMENDATIONS: At present let him continue to have Rocephin as ID recommended. In the meantime I encouraged him to increase oral intake of fluids. Following the results of the workup the continuation of the antibiotic will be determined by infectio us disease specialist. Extended discussion with the family members over the plan of treatment for lucrecia hyde same. Ravinder Moore MD cc: [id number] TT: 11/09/2016 15:16:14 Confirmation # [id number] Dictation # [id number]
[2016-11-09] MEDS: cefTRIAXone 2 GM in Sodium Chloride 0.9% 100 ML IVPB SCH (18:45)
[2016-11-10] MEDS: Metoprolol Succinate 50 mg XL Tab PO SCH (10:12)
--- NOTE | 2016-11-10 14:31 | CP.PCM.PN ---
Subjective - Date & Time of Evaluation Date of Evaluation: 11/10/16 Time of Evaluation: 14:31 - Subjective Subjective: PT. IMPROVING ON IV AB AWAITING PENDING LABS Objective - Vital Signs/Intake and Output Vital Signs (last 24 hours): Temp Pulse Resp BP Pulse Ox 97.7 F 83 20 127/79 96 11/10/16 06:00 11/10/16 08:09 11/10/16 06:00 11/10/16 06:00 11/10/16 06:00 - Medications Medications: Current Medications Alprazolam (Xanax) 0.5 mg PO HS PRN PRN Reason: Anxiety Last Admin: 11/09/16 23:55 Dose: 0.5 mg Amlodipine Besylate (Norvasc) 10 mg PO DAILY [facility] Last Admin: 11/10/16 10:12 Dose: 10 mg Clobetasol Propionate (Temovate 0.05% Ointment) 1 applic TOP BID [facility] Last Admin: 11/10/16 10:13 Dose: 1 applic Ceftriaxone Sodium 2 gm/ (Sodium Chloride) 100 mls @ 100 mls/hr IVPB Q24H [facility] Last Admin: 11/09/16 18:45 Dose: 100 mls/hr Losartan Potassium (Cozaar) 100 mg PO DAILY [facility] Last Admin: 11/10/16 10:12 Dose: 100 mg Metoprolol Succinate (Toprol Xl) 50 mg PO DAILY [facility] Last Admin: 11/10/16 10:12 Dose: 50 mg Rosuvastatin Calcium (Crestor) 5 mg PO HS [facility] Last Admin: 11/09/16 21:24 Dose: 5 mg - Labs Labs: 11/08/16 06:52 11/08/16 06:52 PT 10.5 SECONDS (9.7-12.2) 11/07/16 16:01 INR 0.9 11/07/16 16:01 APTT 33 SECONDS (21-34) 11/07/16 16:01
--- NOTE | 2016-11-10 17:40 | CP.PCM.PN ---
Subjective - Date & Time of Evaluation Date of Evaluation: 11/10/16 Time of Evaluation: 17:40 - Subjective Subjective: AFEBRILE. IMPROVING. NO NEW COMPLAINTS. AWAITING STUDIES AND WORKUP LABS-REVIEWED CSF ; CULTURE NEGATIVE TO DATE. CSF AMEENA INK NEGATIVE CSF FUNGAL SMEAR NEGATIVE. HIV -1 AND 2 ANTIBODY NEGATIVE. HIV 1 AND 2 ,FOURTH-GENERATION TEST NEGATIVE. lYMPHOCYTE SUBSET STUDIES NORMAL. LYME SEROLOGY IGM.IGG -VE IFA AWAITING LYME SEROLOGY BY WESTERN BLOT AND PCR STUDIES. CONTINUE iv ANTIBIOTICS Objective - Vital Signs/Intake and Output Vital Signs (last 24 hours): Temp Pulse Resp BP Pulse Ox 97.6 F 68 20 121/79 98 11/10/16 15:00 11/10/16 15:00 11/10/16 15:00 11/10/16 15:00 11/10/16 15:00 Intake and Output: 11/10/16 11/10/16 06:59 18:59 Intake Total 240 Balance 240 - Medications Medications: Current Medications Alprazolam (Xanax) 0.5 mg PO HS PRN PRN Reason: Anxiety Last Admin: 11/09/16 23:55 Dose: 0.5 mg Amlodipine Besylate (Norvasc) 10 mg PO DAILY [facility] Last Admin: 11/10/16 10:12 Dose: 10 mg Clobetasol Propionate (Temovate 0.05% Ointment) 1 applic TOP BID [facility] Last Admin: 11/10/16 10:13 Dose: 1 applic Ceftriaxone Sodium 2 gm/ (Sodium Chloride) 100 mls @ 100 mls/hr IVPB Q24H [facility] Last Admin: 11/09/16 18:45 Dose: 100 mls/hr Losartan Potassium (Cozaar) 100 mg PO DAILY [facility] Last Admin: 11/10/16 10:12 Dose: 100 mg Metoprolol Succinate (Toprol Xl) 50 mg PO DAILY [facility] Last Admin: 11/10/16 10:12 Dose: 50 mg Rosuvastatin Calcium (Crestor) 5 mg PO HS [facility] Last Admin: 11/09/16 21:24 Dose: 5 mg - Labs Labs: 11/08/16 06:52 11/08/16 06:52 PT 10.5 SECONDS (9.7-12.2) 11/07/16 16:01 INR 0.9 11/07/16 16:01 APTT 33 SECONDS (21-34) 11/07/16 16:01 - Constitutional Appears: No Acute Distress - Head Exam Head Exam: NORMAL INSPECTION - Eye Exam Eye Exam: EOMI, PERRL - ENT Exam ENT Exam: Mucous Membranes Moist - Neck Exam Neck Exam: Normal Inspection - Respiratory Exam Respiratory Exam: Clear to Ausculation Bilateral, NORMAL BREATHING PATTERN - Cardiovascular Exam Cardiovascular Exam: REGULAR RHYTHM, +S1, +S2 - GI/Abdominal Exam GI & Abdominal Exam: Soft, Normal Bowel Sounds. absent: Organomegaly - Extremities Exam Extremities Exam: Normal Capillary Refill. absent: Calf Tenderness, Pedal Edema - Neurological Exam Neurological Exam: Alert, Awake, CN II-XII Intact, Normal Gait, Oriented x3 - Psychiatric Exam Psychiatric exam: Normal Affect, Normal Mood - Skin Skin Exam: Normal Color, Warm Assessment and Plan - Assessment and Plan (Free Text) Assessment: IMPRESSION; -HEADACHE WITH POSITIVE lYME SEROLOGY >5BANDS R/O NEUROBERRELIOSIS -MEMORY LOSS ? EARLY DEMENTIA R/O MULTIPLE SCLEROSIS R/O PROGRESSIVE MULTIFOCAL LEUKOENCEPHALOPATHY SEC. POLYOMAVIRUS (YEN-VIRUS ) -LEUKOPENIA R/O MYELODYSPLASTIC SYNDROME WITH R/O IMMUNE DEFICIENCY SYNDROME. -HYPERTENSION. - CHRONIC SINUSITIS. - CH. PRURITUS/ECZEMA RIGHT SHOULDER BLADE. PLAN . F/U CBC WITH DIFFERENTIAL, LFTS f/u SPINAL FLUID AND W/U AND APPROPRIATE CULTURES/AND PCR. AWAITING REPEAT lYME SEROLOGY BY WESTERN BLOT. CONTINUE iv ROCEPHIN 2 G iv PIGGYBACK ONCE A DAY DAILY.11/06/16. FOLLOW-UP CULTURES AND APPROPRIATE STUDIES IN PROGRESS. CASE DISCUSSED WITH STAFF/ AND NIECE.
[2016-11-10] MEDS: cefTRIAXone 2 GM in Sodium Chloride 0.9% 100 ML IVPB SCH (18:30)
[2016-11-11 07:43] LABS: CHLORIDE 104 mmol/L (98-107); POTASSIUM 4.4 mmol/L (3.6-5.2); SODIUM 142 mmol/L (132-148)
[2016-11-11 07:46] LABS: AST/SGOT 48 U/L (17-59); BILIRUBIN,TOTAL < 0.1 mg/dL (0.2-1.3); CARBON DIOXIDE 29 mmol/L (22-30); GFR AFRICAN-AMERICAN > 60
[2016-11-11 07:47] LABS: ALB/GLOB RATIO 1.4 (1.0-2.1); ALKALINE PHOSPHATASE 50 U/L (38-126); ALT/SGPT 65 U/L (21-72); BLOOD UREA NITROGEN 16 mg/dL (9-20); CALCIUM 8.8 mg/dl (8.6-10.4); GLUCOSE,RANDOM 92 mg/dL (75-110); TOTAL PROTEIN 6.3 g/dL (6.3-8.3)
[2016-11-11] MEDS: Metoprolol Succinate 50 mg XL Tab PO SCH (09:38)
[2016-11-11 12:14] LABS: ANA TITER 1:40
--- NOTE | 2016-11-11 13:42 | CP.PCM.PN ---
Subjective - Date & Time of Evaluation Date of Evaluation: 11/11/16 Time of Evaluation: 13:41 - Subjective Subjective: WBC IMPROVING LYME PENDING PICC LINE AND HOME IV AB HAS AGREED Objective - Vital Signs/Intake and Output Vital Signs (last 24 hours): Temp Pulse Resp BP Pulse Ox 97.7 F 57 L 20 115/68 98 11/11/16 08:00 11/11/16 08:00 11/11/16 08:00 11/11/16 08:00 11/11/16 08:00 - Medications Medications: Current Medications Alprazolam (Xanax) 0.5 mg PO HS PRN PRN Reason: Anxiety Last Admin: 11/10/16 21:43 Dose: 0.5 mg Amlodipine Besylate (Norvasc) 10 mg PO DAILY [facility] Last Admin: 11/11/16 09:38 Dose: 10 mg Clobetasol Propionate (Temovate 0.05% Ointment) 1 applic TOP BID [facility] Last Admin: 11/11/16 09:39 Dose: 1 applic Ceftriaxone Sodium 2 gm/ (Sodium Chloride) 100 mls @ 100 mls/hr IVPB Q24H [facility] Last Admin: 11/10/16 18:30 Dose: 100 mls/hr Losartan Potassium (Cozaar) 100 mg PO DAILY [facility] Last Admin: 11/11/16 09:38 Dose: 100 mg Metoprolol Succinate (Toprol Xl) 50 mg PO DAILY [facility] Last Admin: 11/11/16 09:38 Dose: 50 mg Rosuvastatin Calcium (Crestor) 5 mg PO HS [facility] Last Admin: 11/10/16 21:40 Dose: 5 mg - Labs Labs: 11/08/16 06:52 11/11/16 07:08 PT 10.5 SECONDS (9.7-12.2) 11/07/16 16:01 INR 0.9 11/07/16 16:01 APTT 33 SECONDS (21-34) 11/07/16 16:01
--- NOTE | 2016-11-11 14:09 | CP.PCM.PN ---
Subjective - Date & Time of Evaluation Date of Evaluation: 11/11/16 Time of Evaluation: 14:09 - Subjective Subjective: AFEBRILE. IMPROVING C/O HEADACHE INTERMITTENTLY. NO NEW COMPLAINTS. AWAITING STUDIES AND WORKUP Objective - Vital Signs/Intake and Output Vital Signs (last 24 hours): Temp Pulse Resp BP Pulse Ox 97.7 F 57 L 20 115/68 98 11/11/16 08:00 11/11/16 08:00 11/11/16 08:00 11/11/16 08:00 11/11/16 08:00 - Medications Medications: Current Medications Alprazolam (Xanax) 0.5 mg PO HS PRN PRN Reason: Anxiety Last Admin: 11/10/16 21:43 Dose: 0.5 mg Amlodipine Besylate (Norvasc) 10 mg PO DAILY [facility] Last Admin: 11/11/16 09:38 Dose: 10 mg Clobetasol Propionate (Temovate 0.05% Ointment) 1 applic TOP BID [facility] Last Admin: 11/11/16 09:39 Dose: 1 applic Ceftriaxone Sodium 2 gm/ (Sodium Chloride) 100 mls @ 100 mls/hr IVPB Q24H [facility] Last Admin: 11/10/16 18:30 Dose: 100 mls/hr Losartan Potassium (Cozaar) 100 mg PO DAILY [facility] Last Admin: 11/11/16 09:38 Dose: 100 mg Metoprolol Succinate (Toprol Xl) 50 mg PO DAILY [facility] Last Admin: 11/11/16 09:38 Dose: 50 mg Rosuvastatin Calcium (Crestor) 5 mg PO HS [facility] Last Admin: 11/10/16 21:40 Dose: 5 mg - Labs Labs: 11/08/16 06:52 11/11/16 07:08 PT 10.5 SECONDS (9.7-12.2) 11/07/16 16:01 INR 0.9 11/07/16 16:01 APTT 33 SECONDS (21-34) 11/07/16 16:01 - Constitutional Appears: No Acute Distress - Head Exam Head Exam: NORMAL INSPECTION - Eye Exam Eye Exam: EOMI, PERRL - ENT Exam ENT Exam: Mucous Membranes Moist - Neck Exam Neck Exam: Normal Inspection - Respiratory Exam Respiratory Exam: Clear to Ausculation Bilateral - Cardiovascular Exam Cardiovascular Exam: REGULAR RHYTHM, +S1, +S2 - Extremities Exam Extremities Exam: absent: Calf Tenderness, Joint Swelling, Pedal Edema - Neurological Exam Neurological Exam: Awake, CN II-XII Intact, Normal Gait, Oriented x3, Reflexes Normal - Psychiatric Exam Psychiatric exam: Normal Mood - Skin Skin Exam: Normal Color, Warm Assessment and Plan - Assessment and Plan (Free Text) Plan: -HEADACHE WITH POSITIVE lYME SEROLOGY >5BANDS R/O NEUROBERRELIOSIS -MEMORY LOSS ? EARLY DEMENTIA R/O MULTIPLE SCLEROSIS R/O PROGRESSIVE MULTIFOCAL LEUKOENCEPHALOPATHY SEC. POLYOMAVIRUS (YEN-VIRUS ) -LEUKOPENIA R/O MYELODYSPLASTIC SYNDROME WITH R/O IMMUNE DEFICIENCY SYNDROME. -HYPERTENSION. - CHRONIC SINUSITIS. - CH. PRURITUS/ECZEMA RIGHT SHOULDER BLADE. PLAN . f/u SPINAL FLUID AND W/U AND APPROPRIATE CULTURES/AND PCR. AWAITING REPEAT lYME SEROLOGY BY WESTERN BLOT. CONTINUE iv ROCEPHIN 2 G iv PIGGYBACK ONCE A DAY DAILY.11/06/16. FOLLOW-UP CULTURES AND APPROPRIATE STUDIES IN PROG case discussed with .
[2016-11-11 15:15] LABS: JC VIRUS DNA PCR QUANT <500 copies/mL (<500); JC VIRUS DNA SOURCE Plasma (())
[2016-11-11] MEDS: cefTRIAXone 2 GM in Sodium Chloride 0.9% 100 ML IVPB SCH (18:04)
[2016-11-12 07:09] LABS: BASO % 0.9 % (0.0-2.0); EOS # 0.1 K/uL (0.0-0.7); EOS % 2.1 % (0.0-4.0); HEMATOCRIT 42.8 % (35.0-51.0); LYMPH # 1.3 K/uL (1.0-4.3); LYMPH % 38.5 % (20.0-40.0); MEAN CORPUSCULAR HEMOGLOBIN 31.3 pg (27.0-31.0); MEAN CORPUSCULAR HGB CONC 33.3 g/dL (33.0-37.0); MEAN PLATELET VOLUME 9.3 fL (7.2-11.7); MONO # 0.5 K/uL (0.0-0.8); MONO % 13.6 % (0.0-10.0); RED CELL DISTRIBUTION WIDTH 12.7 % (11.5-14.5); WHITE BLOOD COUNT 3.3 K/uL (4.8-10.8)
[2016-11-12] MEDS: Metoprolol Succinate 50 mg XL Tab PO SCH (09:25)
--- NOTE | 2016-11-12 13:06 | CP.PCM.PN ---
Subjective - Date & Time of Evaluation Date of Evaluation: 11/12/16 Time of Evaluation: 13:05 - Subjective Subjective: AFEBRILE FOR IV OUT PT AB PICC LINE Objective - Vital Signs/Intake and Output Vital Signs (last 24 hours): Temp Pulse Resp BP Pulse Ox 97.5 F L 71 20 127/80 98 11/12/16 08:00 11/12/16 11:48 11/12/16 08:00 11/12/16 08:00 11/12/16 08:00 Intake and Output: 11/12/16 11/12/16 11:59 23:59 Intake Total 700 Balance 700 - Medications Medications: Current Medications Alprazolam (Xanax) 0.5 mg PO HS PRN PRN Reason: Anxiety Last Admin: 11/11/16 21:14 Dose: 0.5 mg Amlodipine Besylate (Norvasc) 10 mg PO DAILY [facility] Last Admin: 11/12/16 09:26 Dose: 10 mg Clobetasol Propionate (Temovate 0.05% Ointment) 1 applic TOP BID [facility] Last Admin: 11/12/16 11:01 Dose: 1 applic Ceftriaxone Sodium 2 gm/ (Sodium Chloride) 100 mls @ 100 mls/hr IVPB Q24H [facility] Last Admin: 11/11/16 18:04 Dose: 100 mls/hr Losartan Potassium (Cozaar) 100 mg PO DAILY [facility] Last Admin: 11/12/16 09:26 Dose: 100 mg Metoprolol Succinate (Toprol Xl) 50 mg PO DAILY [facility] Last Admin: 11/12/16 09:25 Dose: 50 mg Rosuvastatin Calcium (Crestor) 5 mg PO HS [facility] Last Admin: 11/11/16 21:13 Dose: 5 mg - Labs Labs: 11/12/16 06:57 11/11/16 07:08 PT 10.5 SECONDS (9.7-12.2) 11/07/16 16:01 INR 0.9 11/07/16 16:01 APTT 33 SECONDS (21-34) 11/07/16 16:01
--- NOTE | 2016-11-12 13:10 | CP.PCM.PN ---
Subjective - Date & Time of Evaluation Date of Evaluation: 11/12/16 Time of Evaluation: 13:10 - Subjective Subjective: AFEBRILE. IMPROVING C/O HEADACHE INTERMITTENTLY. NO NEW COMPLAINTS. AWAITING STUDIES AND WORKUP. case discussed with attending and staff Pt to go for PICC LINE AND OPD CHEMO DEPT IV INFUSION DAILY . FAMILY AGREES. DO NOT WANT REHAB. 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 MONITOR CBC W DIFF ,BMP, LIVER FUNCTION TEST WEEKLY ( EVERY FRIDAY X 3 WKS. F/U LYME W/U AND CSF STUDIES OPD/. FOLLOW-UP CULTURES AND APPROPRIATE STUDIES IN PROG case discussed with . Objective - Vital Signs/Intake and Output Vital Signs (last 24 hours): Temp Pulse Resp BP Pulse Ox 97.5 F L 71 20 127/80 98 11/12/16 08:00 11/12/16 11:48 11/12/16 08:00 11/12/16 08:00 11/12/16 08:00 Intake and Output: 11/12/16 11/12/16 06:59 18:59 Intake Total 200 500 Balance 200 500 - Medications Medications: Current Medications Alprazolam (Xanax) 0.5 mg PO HS PRN PRN Reason: Anxiety Last Admin: 11/11/16 21:14 Dose: 0.5 mg Amlodipine Besylate (Norvasc) 10 mg PO DAILY [facility] Last Admin: 11/12/16 09:26 Dose: 10 mg Clobetasol Propionate (Temovate 0.05% Ointment) 1 applic TOP BID [facility] Last Admin: 11/12/16 11:01 Dose: 1 applic Ceftriaxone Sodium 2 gm/ (Sodium Chloride) 100 mls @ 100 mls/hr IVPB Q24H [facility] Last Admin: 11/11/16 18:04 Dose: 100 mls/hr Losartan Potassium (Cozaar) 100 mg PO DAILY [facility] Last Admin: 11/12/16 09:26 Dose: 100 mg Metoprolol Succinate (Toprol Xl) 50 mg PO DAILY [facility] Last Admin: 11/12/16 09:25 Dose: 50 mg Rosuvastatin Calcium (Crestor) 5 mg PO [facility] Last Admin: 11/11/16 21:13 Dose: 5 mg - Labs Labs: 11/12/16 06:57 11/11/16 07:08 PT 10.5 SECONDS (9.7-12.2) 11/07/16 16:01 INR 0.9 11/07/16 16:01 APTT 33 SECONDS (21-34) 11/07/16 16:01 - Constitutional Appears: No Acute Distress - Head Exam Head Exam: NORMAL INSPECTION - Eye Exam Eye Exam: EOMI, PERRL. absent: Scleral icterus - ENT Exam ENT Exam: Mucous Membranes Moist - Neck Exam Neck Exam: Normal Inspection - Respiratory Exam Respiratory Exam: Clear to Ausculation Bilateral - Cardiovascular Exam Cardiovascular Exam: REGULAR RHYTHM, +S1, +S2 - GI/Abdominal Exam GI & Abdominal Exam: Soft, Normal Bowel Sounds - Extremities Exam Extremities Exam: Normal Capillary Refill. absent: Calf Tenderness, Pedal Edema - Neurological Exam Neurological Exam: Alert, Awake, CN II-XII Intact, Normal Gait, Oriented x3, Reflexes Normal - Skin Skin Exam: Normal Color, Warm Assessment and Plan (1) Arthritis Status: Acute (2) Headache Status: Acute (3) Lyme disease Status: Acute (4) Memory loss Status: Acute
[2016-11-12] MEDS: cefTRIAXone 2 GM in Sodium Chloride 0.9% 100 ML IVPB SCH (18:47)
[2016-11-13 02:05] LABS: JC VIRUS DNA URINE QUANT <500 copies/mL (<500)
--- NOTE | 2016-11-13 07:18 | PN ---
DATE: 11/12/2016 TIME OF EVALUATION: 7:05 a.m. 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 PHYSICAL EXAMINATION: VITAL SIGNS: Blood pressure 107/70, mean arterial pressure of 82, respiratory rate 18, temperature 9 8 degrees Fahrenheit. NEUROLOGIC: The patient is awake, alert, oriented to person, place, and time. Speech is clear. No long tract signs at present. The patient's workup is still pending, particularly the Lyme. PCR is pending. The patient is gettin g ceftriaxone 2 g per day as per the recommendation from ID. From a neurological point of view, the patient is stable. When the workup and treatment is completed , patient can be discharged and should have followup visit with me as outpatient. Ravinder Moore MD cc: [id number] TT: 11/12/2016 21:16:44 Confirmation # [id number] Dictation # [id number] [email or web address]
[2016-11-13 07:36] LABS: BASO % 0.6 % (0.0-2.0); EOS % 1.8 % (0.0-4.0); LYMPH % 37.9 % (20.0-40.0); MEAN CELL VOLUME 94.5 fL (80.0-94.0); MEAN CORPUSCULAR HEMOGLOBIN 31.5 pg (27.0-31.0); MEAN CORPUSCULAR HGB CONC 33.4 g/dL (33.0-37.0); MEAN PLATELET VOLUME 9.7 fL (7.2-11.7); MONO # 0.3 K/uL (0.0-0.8); MONO % 12.8 % (0.0-10.0); RED CELL DISTRIBUTION WIDTH 12.7 % (11.5-14.5); WHITE BLOOD COUNT 2.7 K/uL (4.8-10.8)
[2016-11-13] MEDS: Metoprolol Succinate 50 mg XL Tab PO SCH (09:01)
--- NOTE | 2016-11-13 11:49 | RAD ---
HISTORY: verify PICC COMPARISON: 11/06/2016 FINDINGS: LUNGS: No focal airspace opacity. PLEURA: No significant pleural effusion identified, no pneumothorax apparent. CARDIOVASCULAR: Normal. OSSEOUS STRUCTURES: No significant abnormalities. VISUALIZED UPPER ABDOMEN: Normal. OTHER FINDINGS: Interval introduction of right-sided PICC with the distal tip of the catheter overlying the projection of the SVC/right atrial junction. IMPRESSION: Interval introduction of right-sided PICC with the distal tip of the catheter overlying the projection of the SVC/right atrial junction.
--- NOTE | 2016-11-13 13:01 | CP.PCM.PN ---
Subjective - Date & Time of Evaluation Date of Evaluation: 11/13/16 Time of Evaluation: 13:01 - Subjective Subjective: AFEBRILE FOR IV OUT PT AB PICC LINE Objective - Vital Signs/Intake and Output Vital Signs (last 24 hours): Temp Pulse Resp BP Pulse Ox 97.8 F 82 20 129/86 97 11/13/16 07:00 11/13/16 07:00 11/13/16 07:00 11/13/16 07:00 11/13/16 07:00 Intake and Output: 11/13/16 11/13/16 11:59 23:59 Intake Total 200 Balance 200 - Medications Medications: Current Medications Alprazolam (Xanax) 0.5 mg PO HS PRN PRN Reason: Anxiety Last Admin: 11/12/16 22:57 Dose: 0.5 mg Amlodipine Besylate (Norvasc) 10 mg PO DAILY [facility] Last Admin: 11/13/16 09:00 Dose: 10 mg Clobetasol Propionate (Temovate 0.05% Ointment) 1 applic TOP BID [facility] Last Admin: 11/13/16 10:23 Dose: 1 applic Ceftriaxone Sodium 2 gm/ (Sodium Chloride) 100 mls @ 100 mls/hr IVPB Q24H [facility] Last Admin: 11/12/16 18:47 Dose: 100 mls/hr Losartan Potassium (Cozaar) 100 mg PO DAILY [facility] Last Admin: 11/13/16 09:00 Dose: 100 mg Metoprolol Succinate (Toprol Xl) 50 mg PO DAILY [facility] Last Admin: 11/13/16 09:01 Dose: 50 mg Rosuvastatin Calcium (Crestor) 5 mg PO HS [facility] Last Admin: 11/12/16 22:17 Dose: 5 mg - Labs Labs: 11/13/16 07:19 11/11/16 07:08 PT 10.5 SECONDS (9.7-12.2) 11/07/16 16:01 INR 0.9 11/07/16 16:01 APTT 33 SECONDS (21-34) 11/07/16 16:01
--- NOTE | 2016-11-13 13:35 | CP.PCM.PN ---
Subjective - Date & Time of Evaluation Date of Evaluation: 11/13/16 Time of Evaluation: 13:35 - Subjective Subjective: AFEBRILE. IMPROVING C/O HEADACHE INTERMITTENTLY. NO NEW COMPLAINTS. S/P MAMADOU PICC LINE AWAITING STUDIES AND WORKUP. case discussed with attending and staff Pt to go for OPD CHEMO DEPT IV INFUSION DAILY . FAMILY AGREES. DO NOT WANT REHAB. 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 MONITOR CBC W DIFF ,BMP, LIVER FUNCTION TEST WEEKLY ( EVERY FRIDAY X 3 WKS. F/U LYME W/U AND CSF STUDIES OPD/. FOLLOW-UP CULTURES AND APPROPRIATE STUDIES IN PROG case discussed with . CASE DISCUSSED WITH STAFF. PT TO BE DC TODAY IF POSSIBLE. Objective - Vital Signs/Intake and Output Vital Signs (last 24 hours): Temp Pulse Resp BP Pulse Ox 97.8 F 82 20 129/86 97 11/13/16 07:00 11/13/16 07:00 11/13/16 07:00 11/13/16 07:00 11/13/16 07:00 Intake and Output: 11/13/16 11/13/16 06:59 18:59 Intake Total 600 Balance 600 - Medications Medications: Current Medications Alprazolam (Xanax) 0.5 mg PO HS PRN PRN Reason: Anxiety Last Admin: 11/12/16 22:57 Dose: 0.5 mg Amlodipine Besylate (Norvasc) 10 mg PO DAILY [facility] Last Admin: 11/13/16 09:00 Dose: 10 mg Clobetasol Propionate (Temovate 0.05% Ointment) 1 applic TOP BID [facility] Last Admin: 11/13/16 10:23 Dose: 1 applic Ceftriaxone Sodium 2 gm/ (Sodium Chloride) 100 mls @ 100 mls/hr IVPB Q24H [facility] Last Admin: 11/12/16 18:47 Dose: 100 mls/hr Losartan Potassium (Cozaar) 100 mg PO DAILY [facility] Last Admin: 11/13/16 09:00 Dose: 100 mg Metoprolol Succinate (Toprol Xl) 50 mg PO DAILY [facility] Last Admin: 11/13/16 09:01 Dose: 50 mg Rosuvastatin Calcium (Crestor) 5 mg PO HS [facility] Last Admin: 11/12/16 22:17 Dose: 5 mg - Labs Labs: 11/13/16 07:19 11/11/16 07:08 PT 10.5 SECONDS (9.7-12.2) 11/07/16 16:01 INR 0.9 11/07/16 16:01 APTT 33 SECONDS (21-34) 11/07/16 16:01 - Constitutional Appears: No Acute Distress - Head Exam Head Exam: NORMAL INSPECTION - Eye Exam Eye Exam: EOMI, PERRL - ENT Exam ENT Exam: Mucous Membranes Moist - Respiratory Exam Respiratory Exam: Clear to Ausculation Bilateral - Cardiovascular Exam Cardiovascular Exam: REGULAR RHYTHM, +S1, +S2 - GI/Abdominal Exam GI & Abdominal Exam: Soft, Normal Bowel Sounds. absent: Organomegaly - Extremities Exam Extremities Exam: Normal Capillary Refill. absent: Calf Tenderness - Neurological Exam Neurological Exam: Alert, Awake, CN II-XII Intact, Normal Gait, Oriented x3, Reflexes Normal - Skin Skin Exam: Normal Color, Warm Assessment and Plan (1) Lyme disease Status: Acute (2) Headache Status: Acute (3) Arthritis Status: Acute (4) Memory loss Status: Acute
[2016-11-13 16:06] VITALS: BP 105/66; PULSE 64; TEMP 98.1; O2SAT 98
--- NOTE | 2016-11-13 17:28 | CP.PCM.PN ---
Subjective - Date & Time of Evaluation Date of Evaluation: 11/13/16 Time of Evaluation: 11:00 - Subjective Subjective: Alert, orientedx3, NAD. Objective - Vital Signs/Intake and Output Vital Signs (last 24 hours): Temp Pulse Resp BP Pulse Ox 98.1 F 64 20 105/66 98 11/13/16 15:00 11/13/16 15:00 11/13/16 15:00 11/13/16 15:00 11/13/16 15:00 Intake and Output: 11/13/16 11/13/16 06:59 18:59 Intake Total 600 Balance 600 - Medications Medications: Current Medications Amlodipine Besylate (Norvasc) 10 mg PO DAILY [facility] Last Admin: 11/13/16 09:00 Dose: 10 mg Clobetasol Propionate (Temovate 0.05% Ointment) 1 applic TOP BID [facility] Last Admin: 11/13/16 10:23 Dose: 1 applic Ceftriaxone Sodium 2 gm/ (Sodium Chloride) 100 mls @ 100 mls/hr IVPB Q24H [facility] Last Admin: 11/12/16 18:47 Dose: 100 mls/hr Losartan Potassium (Cozaar) 100 mg PO DAILY [facility] Last Admin: 11/13/16 09:00 Dose: 100 mg Metoprolol Succinate (Toprol Xl) 50 mg PO DAILY [facility] Last Admin: 11/13/16 09:01 Dose: 50 mg Rosuvastatin Calcium (Crestor) 5 mg PO HS [facility] Last Admin: 11/12/16 22:17 Dose: 5 mg - Labs Labs: 11/13/16 07:19 11/11/16 07:08 PT 10.5 SECONDS (9.7-12.2) 11/07/16 16:01 INR 0.9 11/07/16 16:01 APTT 33 SECONDS (21-34) 11/07/16 16:01 Assessment and Plan - Assessment and Plan (Free Text) Assessment: Patient is seen and examined. Alert orientedx3, NAD. Denies sob or chest pains. PICC line placed today. Discharge plan with outpatient iv therapy , rocephine 2gms daily for 3 mor weeks as per DR Trang Pineda and DR Snider. To follow up in the office in 1 week. Advised to check labs q week and send results to the MD OFFICE.
[2016-11-13] MEDS: cefTRIAXone 2 GM in Sodium Chloride 0.9% 100 ML IVPB SCH (17:31)
--- NOTE | 2016-11-14 12:53 | CP.PCM.DIS ---
Provider - Provider Date of Admission: 11/06/16 13:33 Attending physician: Kimberly Snider MD Time Spent in preparation of Discharge (in minutes): 30 Hospital Course - Lab Results Lab Results: Micro Results 11/07/16 18:15 Cerebral Spinal Fluid Gram Stain - Final 11/07/16 18:15 Cerebral Spinal Fluid CSF Culture - Final No growth. 11/06/16 20:30 Blood Blood Culture - Final NO GROWTH AFTER 5 DAYS 11/06/16 20:30 Blood Gram Stain - Final TEST NOT PERFORMED 11/06/16 20:30 Blood Blood Culture - Final NO GROWTH AFTER 5 DAYS 11/06/16 20:30 Blood Gram Stain - Final TEST NOT PERFORMED 11/07/16 19:54 Other: Please Indicate Virus Culture - Preliminary 11/07/16 12:54 Other: Please Indicate Mycobacterial Culture - Preliminary 11/07/16 Unknown Spinal Fluid Fungal Culture - Preliminary 11/07/16 Unknown Cerebral Spinal Fluid Tiff Ink - Final Most Recent Lab Values WBC 2.7 K/uL (4.8-10.8) L 11/13/16 07:19 RBC 4.55 Mil/uL (4.40-5.90) 11/13/16 07:19 Hgb 14.3 g/dL (12.0-18.0) 11/13/16 07:19 Hct 43.0 % (35.0-51.0) 11/13/16 07:19 MCV 94.5 fL (80.0-94.0) H 11/13/16 07:19 MCH 31.5 pg (27.0-31.0) H 11/13/16 07:19 MCHC 33.4 g/dL (33.0-37.0) 11/13/16 07:19 RDW 12.7 % (11.5-14.5) 11/13/16 07:19 Plt Count 176 K/uL (130-400) 11/13/16 07:19 MPV 9.7 fL (7.2-11.7) 11/13/16 07:19 Neut % (Auto) 46.9 % (50.0-75.0) L 11/13/16 07:19 Lymph % (Auto) 37.9 % (20.0-40.0) 11/13/16 07:19 [place] % (Auto) 12.8 % (0.0-10.0) H 11/13/16 07:19 Eos % (Auto) 1.8 % (0.0-4.0) 11/13/16 07:19 Baso % (Auto) 0.6 % (0.0-2.0) 11/13/16 07:19 Neut # 1.3 K/uL (1.8-7.0) L 11/13/16 07:19 Lymph # 1.0 K/uL (1.0-4.3) 11/13/16 07:19 Steele # 0.3 K/uL (0.0-0.8) 11/13/16 07:19 Eos # 0.0 K/uL (0.0-0.7) 11/13/16 07:19 Baso # 0.0 K/uL (0.0-0.2) 11/13/16 07:19 Differential Comment 11/06/16 13:24 Smear Path Review 11/06/16 13:24 PT 10.5 SECONDS (9.7-12.2) 11/07/16 16:01 INR 0.9 11/07/16 16:01 APTT 33 SECONDS (21-34) 11/07/16 16:01 Sodium 142 mmol/L (132-148) 11/11/16 07:08 Potassium 4.4 mmol/L (3.6-5.2) 11/11/16 07:08 Chloride 104 mmol/L (98-107) 11/11/16 07:08 Carbon Dioxide 29 mmol/L (22-30) 11/11/16 07:08 Anion Gap 13 (10-20) 11/11/16 07:08 BUN 16 mg/dL (9-20) 11/11/16 07:08 Creatinine 1.0 MG/DL (0.8-1.5) 11/11/16 07:08 Est GFR ( Amer) > 60 11/11/16 07:08 Est GFR (Non-Af Amer) > 60 11/11/16 07:08 POC Glucose (mg/dL) 91 mg/dL (65-110) 11/13/16 16:12 Random Glucose 92 mg/dL (75-110) 11/11/16 07:08 Calcium 8.8 mg/dl (8.6-10.4) 11/11/16 07:08 Total Bilirubin < 0.1 mg/dL (0.2-1.3) L 11/11/16 07:08 Direct Bilirubin 0.0 mg/dL (0.0-0.4) 11/11/16 07:08 AST 48 U/L (17-59) 11/11/16 07:08 ALT 65 U/L (21-72) 11/11/16 07:08 Alkaline Phosphatase 50 U/L (38-126) 11/11/16 07:08 C-React Prot High Sens 0.23 mg/L (1.00-3.00) L 11/07/16 08:02 Total Protein 6.3 g/dL (6.3-8.3) 11/11/16 07:08 Albumin 3.7 g/dL (3.5-5.0) 11/11/16 07:08 Globulin 2.6 gm/dL (2.2-3.9) 11/11/16 07:08 Albumin/Globulin Ratio 1.4 (1.0-2.1) 11/11/16 07:08 Urine Color Straw (YELLOW) 11/06/16 13:24 Urine Clarity Clear (Clear) 11/06/16 13:24 Urine pH 6.0 (5.0-8.0) 11/06/16 13:24 Ur Specific [place] 1.008 (1.003-1.030) 11/06/16 13:24 Urine Protein Negative mg/dL (NEGATIVE) 11/06/16 13:24 Urine Glucose (UA) Normal mg/dL (Normal) 11/06/16 13:24 Urine Ketones Negative mg/dL (NEGATIVE) 11/06/16 13:24 Urine Blood Negative (NEGATIVE) 11/06/16 13:24 Urine Nitrate Negative (NEGATIVE) 11/06/16 13:24 Urine Bilirubin Negative (NEGATIVE) 11/06/16 13:24 Urine Urobilinogen Normal mg/dL (0.2-1.0) 11/06/16 13:24 Ur Leukocyte Esterase Neg Jose/uL (Negative) 11/06/16 13:24 Urine WBC (Auto) < 1 /hpf (0-5) 11/06/16 13:24 Urine RBC (Auto) < 1 /hpf (0-3) 11/06/16 13:24 Fluid Type Spinal fluid 11/07/16 19:54 CSF Volume 1 mL (0-1) 11/07/16 19:54 CSF Appearance Clear/colorless (CLEAR) 11/07/16 19:54 CSF WBC 39.0 /mm3 (0.0-5.0) H 11/07/16 19:54 CSF RBC 558.0 /mm3 (0.0-0.0) H 11/07/16 19:54 CSF Total Cell Counted TEST NOT PERFORMED 11/07/16 19:54 CSF Neutrophils < 5 % (0-0) H 11/07/16 19:54 CSF Lymphocytes < 10.0 % (0-0) H 11/07/16 19:54 CSF Monos/Macrophages TEST NOT PERFORMED 11/07/16 19:54 CSF Comment 11/07/16 19:54 CSF Glucose 61 mg/dL (40-70) 11/07/16 19:54 CSF Total Protein 40.0 mg/dL (12-60) 11/07/16 19:54 CSF VDRL Nonreactive (Nonreactive) 11/07/16 19:54 Rheum Arthritis Panel Negative (NEGATIVE) 11/13/16 07:19 LOREN 6 Profile Positive (NEGATIVE) H 11/07/16 08:02 LOREN Titer 1:40 H 11/07/16 08:02 LOREN Pattern Homogenous H 11/07/16 08:02 Absolute Lymphs (Flow) 1231 Cells/mcL (850-3900) 11/07/16 08:02 % CD4 Cells 44 Percent (30-61) 11/07/16 08:02 Absolute CD4 Count 536 Cells/mcL (490-1740) 11/07/16 08:02 T-Help/Suppress Ratio 2.25 Ratio (0.86-5.00) 11/07/16 08:02 % CD8 Cells 19 Percent (12-42) 11/07/16 08:02 Absolute CD8 Count 239 Cells/mcL (180-1170) 11/07/16 08:02 Lyme Disease Screen <0.90 index (()) 11/07/16 08:02 Lyme Disease IgG Ab (IFA) Negative (NEGATIVE) 11/06/16 13:24 Lyme Disease IgM Ab Negative (NEGATIVE) 11/06/16 13:24 Lyme Disease DNA (PCR) Not detected (()) 11/07/16 08:02 Hepatitis A IgM Ab Negative (NEGATIVE) 11/08/16 06:52 Hep Bs Antigen Negative (NEGATIVE) 11/08/16 06:52 Hep B Core IgM Ab Negative (NEGATIVE) 11/08/16 06:52 Hepatitis C Antibody Negative (NEGATIVE) 11/08/16 06:52 HIV 1&2 Ag/Ab, 4th Gen Nonreactive (Nonreactive) 11/06/16 18:50 HIV 1&2 Antibody Screen Negative (NEGATIVE) 11/07/16 08:02 YEN Virus Spec Source Plasma (()) 11/08/16 07:57 YEN Virus DNA (PCR) <500 copies/mL (<500) 11/08/16 07:57 Ur YEN Virus DNA (PCR) <500 copies/mL (<500) 11/07/16 12:58 - Hospital Course Hospital Course: PT. 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 FOR SOMETIME HAS BEEN CMPLAIG OF MEMOMARY LOSS AND NO FOCAL WAEKNESS . NEUROLOGY W/U SHOWED 4-5 BAND POSITIVE FOR LYME DISEASE . MRI BRAIN SHOWED WHITE MATTER CHANGES PROBABLY SEC TO LYME . PT ALSO C/O HEADACHE ID/NEURO CONSULTED LP WAS DONE ,FINAL REPORT ON SP. FLUID LYME PENDING IV ROCEPHIN , PT IMPROVED . WBC IMPROVED PT D/C HOME FOR OUT PT. IV ROCEPHIN FOR 21 DAYS Discharge Exam - Head Exam Head Exam: NORMAL INSPECTION Discharge Plan - Discharge Medications Prescriptions: cefTRIAXone [Rocephin] 2 gm IV DAILY #20 vial - Follow Up Plan Condition: STABLE Disposition: HOME/ ROUTINE Instructions: Ceftriaxone (By injection), Lyme Disease (GEN) Referrals: Valdo Pineda MD [Staff Provider] - Kimberly Snider MD [Staff Provider] -
[2016-11-18 19:20] LABS: CALIFORNIA IgG <1:4 (()); CALIFORNIA IgM <1:4 (()); EASTERN EQUINE IgG <1:4 (()); EASTERN EQUINE IgM <1:4 (()); ST. LOUIS IgG <1:4 (()); ST. LOUIS IgM <1:4 (()); WESTERN EQUINE IgG <1:4 (()); WESTERN EQUINE IgM <1:4 (())
== END 2016-11-13 18:00 | disposition home or self-care (01) | DRG 580 ==
LOC: C.ER 11:32 → C.9E 13:33 → C.3T 16:52
PROVIDERS: ADMIT Internal Medicine Cardiovascular Disease; ATTEND Internal Medicine Cardiovascular Disease
PROC: 009U3ZX Drainage of Spinal Canal, Percutaneous Approach, Diagnostic (ICD-10-PCS; principal; 2016-11-07)
PROC: 02HV33Z Insertion of Infusion Device into Superior Vena Cava, Percutaneous Approach (ICD-10-PCS; 2016-11-13)
DX: A69.22 Other neurologic disorders in Lyme disease (principal); G04.81 Other encephalitis and encephalomyelitis; C43.9 Malignant melanoma of skin, unspecified; F03.90 Unspecified dementia, unspecified severity, without behavioral disturbance, psychotic disturbance, mood disturbance, and anxiety; I10 Essential (primary) hypertension; D72.819 Decreased white blood cell count, unspecified; N40.0 Benign prostatic hyperplasia without lower urinary tract symptoms; F41.9 Anxiety disorder, unspecified; R41.3 Other amnesia; J32.9 Chronic sinusitis, unspecified; L30.9 Dermatitis, unspecified; L29.9 Pruritus, unspecified; M19.90 Unspecified osteoarthritis, unspecified site